=== PATIENT | female | born 1945 | race Caucasian/White ===

== ENCOUNTER → 2017-12-08 | Outpatient (CLI) | payer MEDICARE, OTHER ==
[~2017-12-08] MED LIST: ALLO100T30 PO; AMLO10TA2 PO; ASCO100019 PO; ASPI-496 PO; ATOR-2 PO; CHOL5000 PO; DOXA4TAB3 PO; FISH1CAP PEG; LISI-170 PO; LISI1TAB7 PO; MELA10TA3 PO; METO50TA82 PO; MULT-224 PO; OMEP20CA9 PO; Occuvite PO; SERT50TA5 PO; SODI650T PO; SPIR25TA5 PO; TEMA15CA6 PO; Tylenol PM PO; VITA100020 PO; VITA150T PO
[2017-12-08 12:05] LABS: BASOPHILS # (AUTO) 0.06 x10^3/uL (0-0.1); BASOPHILS % (AUTO) 1 % (0-1); EOSINOPHILS # (AUTO) 0.36 x10^3/uL (0-0.4); EOSINOPHILS % (AUTO) 8 % (1-7); LYMPHOCYTES # (AUTO) 1.62 x10^3/uL (1-3.4); LYMPHOCYTES % (AUTO) 36 % (22-44); MD NO; MEAN CORPUSCULAR HEMOGLOBIN 32.8 pg (27.0-34.8); MEAN CORPUSCULAR HGB CONC 33.5 g/dL (32.4-35.8); MEAN PLATELET VOLUME 7.6 fL (7.4-10.4); MONOCYTES # (AUTO) 0.71 x10^3/uL (0.2-0.8); MONOCYTES % (AUTO) 16 % (2-9); NEUTROPHILS # (AUTO) 1.78 x10^3/uL (1.8-6.8); NEUTROPHILS % (AUTO) 39 % (42-75); PLATELET COUNT 192 x10^3/uL (130-400); RED BLOOD COUNT 3.84 x10^6/uL (3.82-5.3); RED CELL DISTRIBUTION WIDTH 14.3 % (9.6-15.2)
[2017-12-08 12:17] LABS: PROTHROMBIN TIME 10.3 Seconds (9.6-11.5)
[2017-12-08 12:18] LABS: CHLORIDE 99 mmol/L (98-107)
[2017-12-08 12:33] LABS: ALANINE AMINOTRANSFERASE 28 U/L (12-78); ALKALINE PHOSPHATASE 77 U/L (45-117); ANION GAP 9 mmol/L (5-15); BILIRUBIN,TOTAL 0.4 mg/dL (0.2-1.0); CALCIUM 8.6 mg/dL (8.5-10.1); CREATININE 3.34 mg/dL (0.55-1.02)
== END | disposition home or self-care (01) ==
LOC: STAR 11:10
PROVIDERS: ATTEND Urology
DX: Z01.818 Encounter for other preprocedural examination (principal); Q61.2 Polycystic kidney, adult type
CPT/HCPCS: 36415; 80053; 85025; 85610; 85730; 93005

== ENCOUNTER 2017-12-25 06:10 | Inpatient (IN) | payer MEDICARE, OTHER ==
[~2017-12-25] VITALS: Ht 162.6 cm; Wt 63.5 kg
[~2017-12-25 06:10] MED LIST changes: -AMLO10TA2 PO; +AMLO10TA6 PO
[2017-12-25] MEDS ORDERED: THROMBIN 20,000 UNIT VIAL TP ONE (06:45)
[2017-12-25] MEDS ORDERED: AMLODIPINE 5 MG TABLET PO ONE (07:35)
[2017-12-25] MEDS ORDERED: METOPROLOL TARTRATE 50 MG TABLET PO STA (07:35)
[2017-12-25] MEDS ORDERED: SODIUM CHLORIDE 0.9% 1,000 ML IV SCH (07:39)
[2017-12-25 07:51] LABS: INTERNATIONAL NORMALIZED RATIO 0.99 (0.93-1.1); PROTHROMBIN TIME 10.2 Seconds (9.6-11.5)
[2017-12-25] MEDS ORDERED: MIDAZOLAM 1 MG/ML, 5ML IV ONE (08:04)
[2017-12-25] MEDS ORDERED: PROMETHAZINE 25 MG/ML, 1ML IM ONE (08:50)
[2017-12-25] MEDS ORDERED: MEPERIDINE/PF 50 MG/ML IVPush ONE (08:50)
[2017-12-25] MEDS ORDERED: FENTANYL PF 100 MCG/2ML IVPush ONE (09:04)
[2017-12-25] MEDS ORDERED: hydrALAzine 20 MG/ML, 1ML IVPush ONE (09:49)
[2017-12-25] MEDS ORDERED: ONDANSETRON 2MG/ML, 2ML IV ONE (10:07)
[2017-12-25] MEDS ORDERED: MEPERIDINE/PF 50 MG/ML ONE (11:10)
[2017-12-25] MEDS ORDERED: BUPIVACAINE 0.25% ONE (11:35)
[2017-12-25] MEDS ORDERED: EPINEPHRINE 1 MG/ML, 1ML ONE (11:35)
[2017-12-25] MEDS ORDERED: SUCCINYLCHOLINE 20 MG/ML, 10ML ONE (11:56)
[2017-12-25] MEDS ORDERED: METOCLOPRAMIDE 5 MG/ML, 2ML ONE (11:56)
[2017-12-25] MEDS ORDERED: CEFAZOLIN 1,000 MG ONE (11:56)
[2017-12-25] MEDS ORDERED: DEXAMETHASONE 4 MG/ML, 1ML ONE (11:56)
[2017-12-25] MEDS ORDERED: ONDANSETRON 2MG/ML, 2ML ONE (11:56)
[2017-12-25] MEDS ORDERED: PROPOFOL 10 MG/ML, 20ML ONE (11:56)
[2017-12-25] MEDS ORDERED: EPHEDRINE 50 MG/ML, 1ML ONE (11:56)
[2017-12-25] MEDS ORDERED: GLYCOPYRROLATE 0.2MG/1ML, 5ML ONE (11:56)
[2017-12-25] MEDS ORDERED: PHENYLEPHRINE 10 MG/ML ONE (11:56)
[2017-12-25] MEDS ORDERED: ONDANSETRON 2MG/ML, 2ML IV PRN (17:00)
[2017-12-25] MEDS: LABETALOL 5MG/ML, 20ML IVPush SCH (17:00)
[2017-12-25] MEDS: D5%-LACTATED RINGERS 1,000 ML IV SCH (17:09)
[2017-12-25 17:32] LABS: BASOPHILS # (AUTO) 0.05 x10^3/uL (0-0.1); BASOPHILS % (AUTO) 1 % (0-1); EOSINOPHILS % (AUTO) 0 % (1-7); LYMPHOCYTES # (AUTO) 0.57 x10^3/uL (1-3.4); LYMPHOCYTES % (AUTO) 8 % (22-44); MD NO; MEAN CORPUSCULAR HEMOGLOBIN 33.6 pg (27.0-34.8); MEAN PLATELET VOLUME 7.9 fL (7.4-10.4); MONOCYTES # (AUTO) 0.42 x10^3/uL (0.2-0.8); MONOCYTES % (AUTO) 6 % (2-9); NEUTROPHILS # (AUTO) 6.16 x10^3/uL (1.8-6.8); NEUTROPHILS % (AUTO) 86 % (42-75); PLATELET COUNT 136 x10^3/uL (130-400); RED BLOOD COUNT 2.86 x10^6/uL (3.82-5.3); RED CELL DISTRIBUTION WIDTH 13.9 % (9.6-15.2)
[2017-12-25] MEDS: FENTANYL PF 100 MCG/2ML IVPush PRN ×5 (17:42→23:35)
[2017-12-25 17:45] LABS: ALANINE AMINOTRANSFERASE 24 U/L (12-78); ALBUMIN 2.7 g/dL (3.4-5.0); ANION GAP 10 mmol/L (5-15); CALCIUM 8.3 mg/dL (8.5-10.1); CHLORIDE 105 mmol/L (98-107); CREATININE 4.79 mg/dL (0.55-1.02)
[2017-12-25 17:49] LABS: ALKALINE PHOSPHATASE 58 U/L (45-117); BILIRUBIN,TOTAL 0.3 mg/dL (0.2-1.0); TOTAL PROTEIN 5.6 g/dL (6.4-8.2); TROPONIN I < 0.015 ng/mL (0.000-0.045)
[2017-12-25] MEDS ORDERED: METOPROLOL TARTRATE 50 MG TABLET PO SCH (18:00)
[2017-12-25] MEDS: CEFAZOLIN PMX 1GM/50ML 50 ML IVPB SCH (20:08)
[2017-12-25] MEDS: DOXAZOSIN 2MG TABLET PO SCH (21:00)
[2017-12-25] MEDS: INSULIN LISPRO 100 UNITS/ML, PEN SQ-INSULIN SCH (22:29)
[2017-12-26] MEDS: LABETALOL 5MG/ML, 20ML IVPush SCH ×2 (01:00→09:00)
[2017-12-26] MEDS: FENTANYL PF 100 MCG/2ML IVPush PRN ×10 (01:21→14:42)
[2017-12-26] MEDS: D5%-LACTATED RINGERS 1,000 ML IV SCH (03:34)
[2017-12-26 04:00] VITALS: BP 112/50
[2017-12-26] MEDS: CEFAZOLIN PMX 1GM/50ML 50 ML IVPB SCH (04:08)
[2017-12-26 05:33] LABS: ANION GAP 10 mmol/L (5-15); CALCIUM 8.5 mg/dL (8.5-10.1); CHLORIDE 106 mmol/L (98-107); CREATININE 5.72 mg/dL (0.55-1.02)
[2017-12-26] MEDS ORDERED: ENOXAPARIN 30 MG/0.3 ML SQ SCH (07:00)
[2017-12-26] MEDS: INSULIN LISPRO 100 UNITS/ML, PEN SQ-INSULIN SCH ×4 (07:00→20:04)
[2017-12-26] MEDS ORDERED: ENOXAPARIN 40 MG/0.4 ML SQ SCH (08:00)
[2017-12-26] MEDS ORDERED: AMLODIPINE 5 MG TABLET PO SCH (09:00)
[2017-12-26] MEDS: SERTRALINE 50MG TABLET PO SCH (09:12)
[2017-12-26 10:13] VITALS: BP 120/54
[2017-12-26] MEDS: METOPROLOL TARTRATE 50 MG TABLET PO SCH ×2 (10:29→21:55)
[2017-12-26] MEDS: HYDROcodone/APAP 5/325 TABLET PO PRN ×4 (10:54→23:56)
[2017-12-26] MEDS ORDERED: DARBEPOETIN 60 MCG/ML SQ SCH (13:00)
[2017-12-26 13:58] VITALS: BP 144/72
[2017-12-26 19:25] VITALS: BP 130/79
[2017-12-26] MEDS: DOXAZOSIN 2MG TABLET PO SCH (20:04)
[2017-12-26 21:53] VITALS: BP 106/59
[2017-12-26] MEDS: DIPHENHYDRAMINE/ZINC CRM 2%, 30GM TP PRN (22:35)
[2017-12-27 01:31] VITALS: BP 106/54
[2017-12-27] MEDS: HYDROcodone/APAP 5/325 TABLET PO PRN (04:12)
[2017-12-27 05:29] LABS: CHLORIDE 101 mmol/L (98-107)
[2017-12-27 05:32] LABS: BASOPHILS # (AUTO) 0.03 x10^3/uL (0-0.1); BASOPHILS % (AUTO) 0 % (0-1); EOSINOPHILS # (AUTO) 0.23 x10^3/uL (0-0.4); EOSINOPHILS % (AUTO) 3 % (1-7); LYMPHOCYTES # (AUTO) 1.05 x10^3/uL (1-3.4); LYMPHOCYTES % (AUTO) 13 % (22-44); MD NO; MEAN CORPUSCULAR HEMOGLOBIN 33.7 pg (27.0-34.8); MEAN CORPUSCULAR HGB CONC 33.9 g/dL (32.4-35.8); MEAN CORPUSCULAR VOLUME 99.4 fL (80-100); MEAN PLATELET VOLUME 8.5 fL (7.4-10.4); MONOCYTES # (AUTO) 0.84 x10^3/uL (0.2-0.8); MONOCYTES % (AUTO) 11 % (2-9); NEUTROPHILS # (AUTO) 5.74 x10^3/uL (1.8-6.8); NEUTROPHILS % (AUTO) 73 % (42-75); PLATELET COUNT 129 x10^3/uL (130-400); RED BLOOD COUNT 2.38 x10^6/uL (3.82-5.3)
[2017-12-27 05:38] LABS: % IRON SATURATION 13 % (20-55); ALANINE AMINOTRANSFERASE 8 U/L (12-78); ALBUMIN 2.3 g/dL (3.4-5.0); ALKALINE PHOSPHATASE 54 U/L (45-117); ANION GAP 5 mmol/L (5-15); BILIRUBIN,TOTAL 0.4 mg/dL (0.2-1.0); CALCIUM 8.5 mg/dL (8.5-10.1); CREATININE 4.18 mg/dL (0.55-1.02); IRON LEVEL 17 mcg/dL (50-170); TOTAL IRON BINDING CAPACITY 129 mcg/dL (250-450); TOTAL PROTEIN 5.4 g/dL (6.4-8.2)
[2017-12-27] MEDS: INSULIN LISPRO 100 UNITS/ML, PEN SQ-INSULIN SCH ×4 (07:00→20:59)
[2017-12-27 07:18] VITALS: BP 114/56
[2017-12-27] MEDS: HEPARIN 5,000 UNITS/ML, 1ML SQ SCH ×2 (09:29→17:13)
[2017-12-27] MEDS: SERTRALINE 50MG TABLET PO SCH (09:29)
[2017-12-27] MEDS: METOPROLOL TARTRATE 50 MG TABLET PO SCH ×2 (09:29→21:21)
[2017-12-27 12:28] VITALS: BP 133/68
[2017-12-27] MEDS: D5%-LACTATED RINGERS 1,000 ML IV SCH (14:07)
[2017-12-27 20:24] VITALS: BP 133/52
[2017-12-27] MEDS: ACYCLOVIR OINT 5%, 15GM TP SCH (21:00)
[2017-12-27] MEDS: DOXAZOSIN 2MG TABLET PO SCH (21:21)
[2017-12-28 02:00] VITALS: BP 118/63
[2017-12-28] MEDS: D5%-LACTATED RINGERS 1,000 ML IV SCH ×3 (02:10→20:30)
[2017-12-28] MEDS: HEPARIN 5,000 UNITS/ML, 1ML SQ SCH ×3 (02:10→17:38)
[2017-12-28 05:42] LABS: MEAN CORPUSCULAR HEMOGLOBIN 33.7 pg (27.0-34.8); MEAN CORPUSCULAR HGB CONC 33.8 g/dL (32.4-35.8); MEAN CORPUSCULAR VOLUME 99.7 fL (80-100); PLATELET COUNT 136 x10^3/uL (130-400); RED BLOOD COUNT 2.21 x10^6/uL (3.82-5.3); RED CELL DISTRIBUTION WIDTH 13.8 % (9.6-15.2)
[2017-12-28 05:46] LABS: CHLORIDE 100 mmol/L (98-107)
[2017-12-28 05:53] LABS: ANION GAP 8 mmol/L (5-15); CALCIUM 8.6 mg/dL (8.5-10.1); CREATININE 6.03 mg/dL (0.55-1.02)
[2017-12-28] MEDS: ACYCLOVIR OINT 5%, 15GM TP SCH ×4 (06:00→20:31)
[2017-12-28 06:15] LABS: BASOPHILS # (AUTO) 0.01 x10^3/uL (0-0.1); BASOPHILS % (AUTO) 0 % (0-1); EOSINOPHILS # (AUTO) 0.63 x10^3/uL (0-0.4); EOSINOPHILS % (AUTO) 9 % (1-7); LYMPHOCYTES # (AUTO) 1.17 x10^3/uL (1-3.4); LYMPHOCYTES % (AUTO) 17 % (22-44); MD SCAN; MONOCYTES # (AUTO) 0.66 x10^3/uL (0.2-0.8); MONOCYTES % (AUTO) 9 % (2-9); NEUTROPHILS # (AUTO) 4.49 x10^3/uL (1.8-6.8); NEUTROPHILS % (AUTO) 65 % (42-75)
[2017-12-28] MEDS: INSULIN LISPRO 100 UNITS/ML, PEN SQ-INSULIN SCH ×4 (07:00→20:18)
[2017-12-28 07:46] VITALS: BP 129/79
[2017-12-28 08:03] LABS: % IRON SATURATION 17 % (20-55); IRON LEVEL 21 mcg/dL (50-170); TOTAL IRON BINDING CAPACITY 123 mcg/dL (250-450)
[2017-12-28 08:31] LABS: FOLATE LEVEL > 20.0 ng/mL (3.1-17.5)
[2017-12-28] MEDS: METOPROLOL TARTRATE 50 MG TABLET PO SCH ×2 (09:36→21:18)
[2017-12-28] MEDS: SERTRALINE 50MG TABLET PO SCH (09:37)
[2017-12-28 13:03] VITALS: BP 131/61
[2017-12-28] MEDS: FERROUS SULFATE 325 MG TABLET PO SCH (17:38)
[2017-12-28 20:28] VITALS: BP 150/71
[2017-12-28] MEDS: DIPHENHYDRAMINE/ZINC CRM 2%, 30GM TP PRN (20:31)
[2017-12-28] MEDS: DOXAZOSIN 2MG TABLET PO SCH (21:00)
[2017-12-29] VITALS (8 sets, daily range): BP systolic 121–172; BP diastolic 54–86
[2017-12-29] MEDS ORDERED: BISACODYL 10 MG SUPP PR PRN
[2017-12-29] MEDS: HEPARIN 5,000 UNITS/ML, 1ML SQ SCH ×3 (01:48→17:50)
[2017-12-29] MEDS: ACYCLOVIR OINT 5%, 15GM TP SCH ×4 (05:48→21:29)
[2017-12-29 06:16] LABS: ALANINE AMINOTRANSFERASE < 6 U/L (12-78); ALBUMIN 2.1 g/dL (3.4-5.0); ANION GAP 8 mmol/L (5-15); CALCIUM 8.3 mg/dL (8.5-10.1); CHLORIDE 101 mmol/L (98-107)
[2017-12-29 06:19] LABS: ALKALINE PHOSPHATASE 53 U/L (45-117); BILIRUBIN,TOTAL 0.4 mg/dL (0.2-1.0); CREATININE 7.69 mg/dL (0.55-1.02); TOTAL PROTEIN 5.1 g/dL (6.4-8.2)
[2017-12-29 06:33] LABS: MEAN CORPUSCULAR HEMOGLOBIN 33.3 pg (27.0-34.8); MEAN CORPUSCULAR HGB CONC 33.8 g/dL (32.4-35.8); MEAN CORPUSCULAR VOLUME 98.6 fL (80-100); PLATELET COUNT 155 x10^3/uL (130-400); RED BLOOD COUNT 2.07 x10^6/uL (3.82-5.3); RED CELL DISTRIBUTION WIDTH 13.6 % (9.6-15.2)
[2017-12-29 06:55] LABS: BASOPHILS # (AUTO) 0.01 x10^3/uL (0-0.1); BASOPHILS % (AUTO) 0 % (0-1); EOSINOPHILS # (AUTO) 0.52 x10^3/uL (0-0.4); EOSINOPHILS % (AUTO) 9 % (1-7); LYMPHOCYTES # (AUTO) 0.97 x10^3/uL (1-3.4); LYMPHOCYTES % (AUTO) 16 % (22-44); MD SCAN; MONOCYTES # (AUTO) 0.61 x10^3/uL (0.2-0.8); MONOCYTES % (AUTO) 10 % (2-9); NEUTROPHILS # (AUTO) 3.98 x10^3/uL (1.8-6.8); NEUTROPHILS % (AUTO) 65 % (42-75)
[2017-12-29] MEDS ORDERED: METHYLNALTREXONE 12 MG/0.6 ML SQ ONE (08:00)
[2017-12-29] MEDS: INSULIN LISPRO 100 UNITS/ML, PEN SQ-INSULIN SCH ×4 (08:33→21:28)
[2017-12-29] MEDS: METOPROLOL TARTRATE 50 MG TABLET PO SCH ×2 (11:49→21:28)
[2017-12-29] MEDS: SERTRALINE 50MG TABLET PO SCH (11:49)
[2017-12-29 14:23] LABS: OCCULT BLOOD NEGATIVE (NEGATIVE)
[2017-12-29] MEDS ORDERED: ONDANSETRON 4 MG TABLET ONE (18:46)
[2017-12-29] MEDS: DOXAZOSIN 2MG TABLET PO SCH (21:27)
[2017-12-30] MEDS: HEPARIN 5,000 UNITS/ML, 1ML SQ SCH ×3 (02:37→16:59)
[2017-12-30] MEDS: D5%-LACTATED RINGERS 1,000 ML IV SCH (02:38)
[2017-12-30 02:58] VITALS: BP 134/68
[2017-12-30 05:35] LABS: BASOPHILS # (AUTO) 0.01 x10^3/uL (0-0.1); BASOPHILS % (AUTO) 0 % (0-1); EOSINOPHILS # (AUTO) 0.51 x10^3/uL (0-0.4); EOSINOPHILS % (AUTO) 9 % (1-7); LYMPHOCYTES # (AUTO) 1.05 x10^3/uL (1-3.4); LYMPHOCYTES % (AUTO) 18 % (22-44); MD NO; MEAN CORPUSCULAR HEMOGLOBIN 32.8 pg (27.0-34.8); MEAN CORPUSCULAR HGB CONC 33.8 g/dL (32.4-35.8); MEAN CORPUSCULAR VOLUME 97.1 fL (80-100); MEAN PLATELET VOLUME 7.5 fL (7.4-10.4); MONOCYTES # (AUTO) 0.83 x10^3/uL (0.2-0.8); MONOCYTES % (AUTO) 15 % (2-9); NEUTROPHILS % (AUTO) 58 % (42-75); PLATELET COUNT 170 x10^3/uL (130-400); RED BLOOD COUNT 2.97 x10^6/uL (3.82-5.3); RED CELL DISTRIBUTION WIDTH 14.9 % (9.6-15.2)
[2017-12-30] MEDS: ACYCLOVIR OINT 5%, 15GM TP SCH ×4 (05:38→21:00)
[2017-12-30] MEDS: INSULIN LISPRO 100 UNITS/ML, PEN SQ-INSULIN SCH ×4 (08:09→21:00)
[2017-12-30 08:13] VITALS: BP 150/78
[2017-12-30] MEDS: SERTRALINE 50MG TABLET PO SCH (08:45)
[2017-12-30] MEDS: METOPROLOL TARTRATE 50 MG TABLET PO SCH ×2 (10:26→21:34)
[2017-12-30] MEDS: OMEPRAZOLE 20 MG CAPSULE.DR PO SCH (11:09)
[2017-12-30 13:03] VITALS: BP 150/74
[2017-12-30] MEDS: FERROUS SULFATE 325 MG TABLET PO SCH (16:59)
[2017-12-30] MEDS: LACTOBACILLUS CHEW TABLET PO SCH ×2 (16:59→21:32)
[2017-12-30 20:00] VITALS: BP 148/72
[2017-12-30] MEDS: DOXAZOSIN 2MG TABLET PO SCH (21:33)
[2017-12-31] MEDS: HEPARIN 5,000 UNITS/ML, 1ML SQ SCH ×3 (01:28→17:19)
[2017-12-31 01:29] VITALS: BP 155/85
[2017-12-31] MEDS: D5%-LACTATED RINGERS 1,000 ML IV SCH (02:57)
[2017-12-31] MEDS: ACYCLOVIR OINT 5%, 15GM TP SCH ×4 (05:05→21:00)
[2017-12-31 05:40] LABS: BASOPHILS # (AUTO) 0.02 x10^3/uL (0-0.1); BASOPHILS % (AUTO) 0 % (0-1); EOSINOPHILS # (AUTO) 0.43 x10^3/uL (0-0.4); EOSINOPHILS % (AUTO) 8 % (1-7); LYMPHOCYTES # (AUTO) 1.06 x10^3/uL (1-3.4); LYMPHOCYTES % (AUTO) 18 % (22-44); MD NO; MEAN CORPUSCULAR HEMOGLOBIN 32.4 pg (27.0-34.8); MEAN CORPUSCULAR HGB CONC 33.6 g/dL (32.4-35.8); MEAN CORPUSCULAR VOLUME 96.3 fL (80-100); MEAN PLATELET VOLUME 7.2 fL (7.4-10.4); MONOCYTES # (AUTO) 0.71 x10^3/uL (0.2-0.8); MONOCYTES % (AUTO) 12 % (2-9); NEUTROPHILS # (AUTO) 3.56 x10^3/uL (1.8-6.8); NEUTROPHILS % (AUTO) 62 % (42-75); PLATELET COUNT 194 x10^3/uL (130-400); RED BLOOD COUNT 3.13 x10^6/uL (3.82-5.3)
[2017-12-31] MEDS: INSULIN LISPRO 100 UNITS/ML, PEN SQ-INSULIN SCH ×4 (07:00→21:00)
[2017-12-31 07:14] VITALS: BP 115/71
[2017-12-31] MEDS: OMEPRAZOLE 20 MG CAPSULE.DR PO SCH (07:30)
[2017-12-31] MEDS ORDERED: OMEPRAZOLE 20 MG CAPSULE.DR PO SCH (07:30)
[2017-12-31] MEDS: LACTOBACILLUS CHEW TABLET PO SCH ×3 (09:00→21:30)
[2017-12-31] MEDS: SERTRALINE 50MG TABLET PO SCH (09:00)
[2017-12-31] MEDS: METOPROLOL TARTRATE 50 MG TABLET PO SCH ×2 (09:40→21:30)
[2017-12-31 13:29] VITALS: BP 115/68
[2017-12-31 16:33] LABS: OCCULT BLOOD NEGATIVE (NEGATIVE)
[2017-12-31 21:00] VITALS: BP 169/92
[2017-12-31] MEDS: DOXAZOSIN 2MG TABLET PO SCH (21:30)
[2018-01-01] MEDS ORDERED: HYDROCORTISONE OINT 1%, 28GM TP SCH
[2018-01-01 01:41] VITALS: BP_SYST 172; BP_SYST 176; BP_DIAS 86; BP_DIAS 88
[2018-01-01] MEDS: HEPARIN 5,000 UNITS/ML, 1ML SQ SCH ×2 (01:59→09:04)
[2018-01-01] MEDS: D5%-LACTATED RINGERS 1,000 ML IV SCH (02:52)
[2018-01-01] MEDS: ACYCLOVIR OINT 5%, 15GM TP SCH ×2 (05:30→11:00)
[2018-01-01] MEDS: INSULIN LISPRO 100 UNITS/ML, PEN SQ-INSULIN SCH ×2 (07:00→11:00)
[2018-01-01 07:41] VITALS: BP 176/80
[2018-01-01] MEDS ORDERED: AMLODIPINE 5 MG TABLET PO SCH (09:00)
[2018-01-01] MEDS ORDERED: HYDROCORTISONE CRM 0.5%, 30GM TP SCH (09:00)
[2018-01-01] MEDS: METOPROLOL TARTRATE 50 MG TABLET PO SCH (09:03)
[2018-01-01] MEDS: LACTOBACILLUS CHEW TABLET PO SCH (09:04)
[2018-01-01] MEDS: OMEPRAZOLE 20 MG CAPSULE.DR PO SCH (09:04)
[2018-01-01] MEDS: SERTRALINE 50MG TABLET PO SCH (09:09)
[2018-01-01] MEDS ORDERED: AMLODIPINE 5 MG TABLET PO ONE (12:12)
[2018-01-01] MEDS ORDERED: SODIUM CHLORIDE 0.9% 1,000 ML IV SCH (12:12)
[2018-01-01] MEDS ORDERED: hydrALAzine 20 MG/ML, 1ML IV ONE (12:12)
[2018-01-01] MEDS ORDERED: LIDOCAINE-MPF 2%, 2ML INFIL ONE (12:12)
== END 2018-01-01 12:12 | disposition home health service (06) | DRG 659 ==
LOC: ORIP 06:10 → CCU 15:49 → 4WST 12-26 11:49 → DCLOUNGE 01-01 11:48
PROVIDERS: ADMIT Urology; ATTEND Urology
PROC: 04LA3DZ Occlusion of Left Renal Artery with Intraluminal Device, Percutaneous Approach (ICD-10-PCS; 2017-12-25)
PROC: 04L93DZ Occlusion of Right Renal Artery with Intraluminal Device, Percutaneous Approach (ICD-10-PCS; 2017-12-25)
PROC: B4101ZZ Fluoroscopy of Abdominal Aorta using Low Osmolar Contrast (ICD-10-PCS; 2017-12-25)
PROC: 0TT20ZZ Resection of Bilateral Kidneys, Open Approach (ICD-10-PCS; principal; 2017-12-25 09:00)
PROC: 5A1D70Z Performance of Urinary Filtration, Intermittent, Less than 6 Hours Per Day (ICD-10-PCS; 2017-12-26)
PROC: 30233N1 Transfusion of Nonautologous Red Blood Cells into Peripheral Vein, Percutaneous Approach (ICD-10-PCS; 2017-12-29)
PROC: 5A1D70Z Performance of Urinary Filtration, Intermittent, Less than 6 Hours Per Day (ICD-10-PCS; 2017-12-29)
PROC: 5A1D70Z Performance of Urinary Filtration, Intermittent, Less than 6 Hours Per Day (ICD-10-PCS; 2017-12-31)
DX: Q61.2 Polycystic kidney, adult type (principal); E43 Unspecified severe protein-calorie malnutrition; I12.0 Hypertensive chronic kidney disease with stage 5 chronic kidney disease or end stage renal disease; D62 Acute posthemorrhagic anemia; K56.7 Ileus, unspecified; I25.10 Atherosclerotic heart disease of native coronary artery without angina pectoris; N18.6 End stage renal disease; N25.0 Renal osteodystrophy; D63.1 Anemia in chronic kidney disease; G47.30 Sleep apnea, unspecified; E88.89 Other specified metabolic disorders; K21.9 Gastro-esophageal reflux disease without esophagitis; Z85.828 Personal history of other malignant neoplasm of skin; Z90.5 Acquired absence of kidney; Z99.2 Dependence on renal dialysis; Z68.24 Body mass index [BMI] 24.0-24.9, adult; Z95.828 Presence of other vascular implants and grafts; Z90.49 Acquired absence of other specified parts of digestive tract; Z79.82 Long term (current) use of aspirin; Z79.899 Other long term (current) drug therapy; Z88.5 Allergy status to narcotic agent; Z82.49 Family history of ischemic heart disease and other diseases of the circulatory system; Z82.5 Family history of asthma and other chronic lower respiratory diseases; Z80.0 Family history of malignant neoplasm of digestive organs; Z80.52 Family history of malignant neoplasm of bladder; Z84.1 Family history of disorders of kidney and ureter; I95.81 Postprocedural hypotension
CPT/HCPCS: 36415; 37243; 74018; 75894; 80048; 80053; 82272; 82306; 82607; 82728; 82746; 82962; 83540; 83550; 83735; 83970; 84100; 84484; 85014; 85018; 85025; 85610; 86704; 86706; 86850; 86900; 86923; 87081; 87340; 88307; 93306; 99156; 99157; C1889; G0378; J0171; J0690; J0881; J1100; J1644; J1650; J2175; J2250; J2270; J2405; J2550; J2704; J3010; J3490; C1751; C1760; C1769; C1894; J0330; J0360; J1815; J2370; J2765; J7030; J7121; P9016